=== PATIENT | male | born 1945 | race Caucasian/White ===

== ENCOUNTER 2024-11-30 13:42 | Emergency (ER) | payer MEDICARE, OTHER, SELFPAY ==
[2024-11-30] VITALS (9 sets, daily range): BP systolic 171–186; BP diastolic 74–96; PULSE 65–84; RESP 18; TEMP 36.6; O2SAT 95–97; BMI 39.7
--- NOTE | 2024-11-30 14:15 | DI.RAD.S_ITS ---
PROCEDURE: XR CHEST 1V INDICATIONS: Shortness of breath TECHNIQUE: One view of the chest was acquired. COMPARISON: [facility], , CHEST 2 VIEW, 01/11/2016, 10:52. FINDINGS: Surgical changes and devices: None. Lungs and pleura: Mild pulmonary vascular congestion. Increased interstitial lung markings are noted in bilateral lung valle concerning for mild pulmonary edema versus pneumonitis. No definite focal infiltrate. No pleural effusions or pneumothorax. Mediastinum: Mediastinal contours appear normal. Heart size is enlarged. Bones and chest wall: No suspicious bony lesions. Overlying soft tissues appear unremarkable. IMPRESSION: Cardiomegaly and mild congestion. Increased interstitial lung markings concerning for pulmonary edema versus pneumonitis. No definite focal infiltrate. No pleural effusion or pneumothorax. Dictated by: Rl Mayorga M.D. on 11/30/2024 at 15:24 Approved by: Rl Mayorga M.D. on 11/30/2024 at 15:25
--- NOTE | 2024-11-30 14:25 | EKG_ITS ---
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
[2024-11-30 15:05] LABS: Add Manual Diff / Slide Review NO; Hematocrit 44.9 % (41-53); Hemoglobin 15.4 g/dL (13.5-17.5); Lymphocytes Absolute Auto 800 /uL (1100-4500); Mean Corpuscular HGB Conc 34.2 % (30-36); Mean Corpuscular Hemoglobin 34.6 PG (26-34); Mean Corpuscular Volume 101.0 fL (80-100); Platelet Count 167 X10^3/uL (150-400)
[2024-11-30 15:11] LABS: INR 1.0 (0.9-1.3); Prothrombin Time 11.5 SECONDS (9.4-12.5)
[2024-11-30 15:18] LABS: Alanine Aminotransferase 55 IU/L (<50); Albumin 3.6 g/dL (3.5-5.0); Albumin Globulin Ratio 1.5 (1.0-2.8); Alkaline Phosphatase 125 U/L (38-126); Blood Urea Nitrogen 39 mg/dL (9-20); Calcium 8.6 mg/dL (8.4-10.2); Carbon Dioxide 33 mmol/L (22-32); Chloride 97 mmol/L (98-107); Estimated Glomerular Filt Rate > 60 mL/min (>60); Globulin 2.4 g/dL (1.7-4.1); Glucose 216 mg/dL (70-99); HEMOLYSIS 20 (0-50); Potassium 3.2 mmol/L (3.4-5.1); Sodium 137 mmol/L (137-145); Total Protein 6.0 g/dL (6.3-8.2)
[2024-11-30 15:19] LABS: Lactate (Lactic Acid) 1.8 mmol/L (0.7-2.1)
[2024-11-30 15:30] LABS: NT-proBNP (BNP-Adult 18+) 193 pg/mL (<450); Troponin I < 0.012 ng/mL (0.01-0.034)
[2024-11-30] MEDS: POTASSIUM CHLORIDE 20 MEQ TAB PO (16:18)
--- NOTE | 2024-11-30 18:10 | ED.EXTPRO ---
HPI - Extremity Problem General Chief complaint: Extremity Problem,Nontraumatic Stated complaint: bilateral lower leg pain, swelling Time Seen by Provider: 11/30/24 15:25 Source: patient Mode of arrival: Ambulatory Limitations: no limitations History of Present Illness HPI Narrative: 79-year-old male patient with a history of hypertension, venous insufficiency and lymphedema, morbid obesity/obstructive sleep apnea, BPH, chronic back pain with L-spine stenosis and person/anxiety, who presents with worsening of his chronic lower leg edema with some weeping and slight erythema of the lower legs. No warmth or tenderness. For the last week he has been taking some of his 's torsemide pills. Denies shortness of breath or chest pain. He was recently started on a burst and taper prednisone for his back problems. MD Complaint: extremity swelling Onset (ago): week(s) (One week) Related Data Home Medications ?Medication ?Instructions ?Recorded ?Confirmed MULTIVITAMIN (One Daily 1 tab PO QDAY ##0 06/19/11 Multivitamin) [VITAMIN D3] PO QDAY ##0 10/02/12 [ReLeaf cream/spray] ##0 01/02/16 Previous Rx's ?Medication ?Instructions ?Recorded sildenafil 100 mg tablet (Viagra) 100 mg PO PRN #18 tabs 03/29/16 prednisone 20 mg tablet 40 mg (2 x 20 mg) PO AMCC #10 tabs 04/11/16 lisinopril 40 mg tablet 40 mg PO QDAY #90 tabs 12/25/16 hydrochlorothiazide 25 mg tablet 25 mg PO QDAY #30 tabs 03/24/17 Allergies Allergy/AdvReac Type Severity Reaction Status Date / Time Sulfa (Sulfonamide Allergy Intermediate BIG Verified 11/30/24 14:15 Antibiotics) (SULFA BLOTCHY (SULFONAMIDE ANTIBIOTICS)) HIVES clindamycin (CLINDAMYCIN) Allergy Mild RASH AND Verified 11/30/24 14:15 HIVES Penicillins (PENICILLINS) Allergy Unknown UNKNOWN Verified 11/30/24 14:15 (PER PT, MOM SAID I WAS ALLERGIC) Review of Systems Review of Systems ROS Unobtainable: All systems reviewed & are unremarkable except as noted in HPI and below Patient History Family History (Updated 01/26/15 @ 00:00 by ANTHONY Elliott) Brother Age: 63 Arthritis Father Age: 97 Head pain Hypertension Cataract Sister Age: 64 Chronic pain Sister Age: 69 Hypertension Exam Initial Vital Signs Initial Vital Signs: Vital Signs Temperature 97.9 F 11/30/24 14:06 Pulse Rate 77 11/30/24 14:06 Respiratory Rate 18 11/30/24 14:06 Blood Pressure 172/96 H 11/30/24 14:06 Pulse Oximetry 97 11/30/24 14:06 Oxygen Delivery Method Room Air 11/30/24 14:06 Const General: cooperative, comfortable and No acute distress Nutritional Appearance: obese Limitations: mental status not altered [facility] Head: normocephalic and atraumatic Neck Neck: normal visual inspection Chest Chest: normal inspection of the chest Resp Effort & Inspection: normal respiratory effort and able to speak in complete sentences Auscultation: clear to auscultation bilaterally Cardio Rate: regular rate Rhythm: regular rhythm GI Palpation: soft, No guarding and No tender Neuro General: patient alert, patient awake and patient oriented x3 Extrem Other: Exam of the lower extremities reveals significant lymphedema and venous stasis with venous stasis dermatitis and weeping but no warmth or tenderness. There is slight erythema consistent with stasis dermatitis. No calf tenderness. Sensation intact. No ulcers Course Orders Ordered: ED Orders 11/30/24 14:15 XR chest 1V Stat EKG-12 Lead Stat 11/30/24 14:47 Blood Culture Stat Complete Blood Count AUTO DIFF Stat Comprehensive Metabolic Panel Stat Lactate (Lactic Acid) Stat NT-proBNP (BNP-Adult 18+) Stat Prothrombin Time INR Stat Troponin I Stat Discontinued Medications Potassium Chloride (Potassium Chloride 20 Meq Tab) 20 meq PO NOW ONE Stop: 11/30/24 15:26 Last Admin: 11/30/24 16:18 Dose: 20 meq Documented By: ES Vital Signs Vital signs: Vital Signs - 8 hr 11/30/24 14:06 Temperature 97.9 F Pulse Rate 77 Respiratory Rate 18 Blood Pressure 172/96 H Pulse Oximetry 97 Oxygen Delivery Method Room Air MDM - Extremity (Nontraumatic) Lab Data 11/30/24 14:47 11/30/24 14:47 Labs: Lab Results 11/30/24 Range/Units 14:47 WBC 6.9 (4.5-11.0) X10^3/uL RBC 4.45 L (4.5-5.9) X10^6/uL Hgb 15.4 (13.5-17.5) g/dL Hct 44.9 (41-53) % MCV 101.0 H (80-100) fL MCH 34.6 H (26-34) PG MCHC 34.2 (30-36) % RDW 13.4 (11.6-14.8) % Plt Count 167 (150-400) X10^3/uL Neut % (Auto) 83.6 H (50-75) % Lymph % (Auto) 11.2 L (25-40) % Warren % (Auto) 4.9 (3-14) % Eos % (Auto) 0.0 L (2-4) % Baso % (Auto) 0.3 (0-2) % Neut # (Auto) 5800 (8635-1781) /uL Lymph # (Auto) 800 L (7868-2002) /uL Warren # (Auto) 300 (0-900) /uL Eos # (Auto) 0 (0-450) /uL Baso # (Auto) 0 (0-100) /uL PT 11.5 (9.4-12.5) SECONDS INR 1.0 (0.9-1.3) Sodium 137 (137-145) mmol/L Potassium 3.2 L (3.4-5.1) mmol/L Chloride 97 L (98-107) mmol/L Carbon Dioxide 33 H (22-32) mmol/L BUN 39 H (9-20) mg/dL Creatinine 1.09 (0.66-1.25) mg/dL Estimated GFR > 60 (>60) mL/min BUN/Creatinine Ratio 35.8 H (6-22) Glucose 216 H (70-99) mg/dL Lactate 1.8 (0.7-2.1) mmol/L Calcium 8.6 (8.4-10.2) mg/dL Total Bilirubin 0.5 (0.2-1.3) mg/dL AST 57 (17-59) IU/L ALT 55 H (<50) IU/L Alkaline Phosphatase 125 (38-126) U/L Troponin I < 0.012 (0.01-0.034) ng/mL NT-Pro-B Natriuret Pep 193 (<450) pg/mL Total Protein 6.0 L (6.3-8.2) g/dL Albumin 3.6 (3.5-5.0) g/dL Globulin 2.4 (1.7-4.1) g/dL Albumin/Globulin Ratio 1.5 (1.0-2.8) Discharge Plan Departure Prescriptions: No Action MULTIVITAMIN (One Daily Multivitamin) 1 tab PO QDAY Qty: 0 [VITAMIN D3] PO QDAY Qty: 0 [ReLeaf cream/spray] Qty: 0 sildenafil [Viagra] 100 MG tablet 100 mg PO PRN Qty: 18 2RF prednisone 20 MG tablet 40 mg PO AMCC Qty: 10 0RF lisinopril 40 MG tablet 40 mg PO QDAY Qty: 90 1RF hydrochlorothiazide 25 MG tablet 25 mg PO QDAY Qty: 30 0RF Referrals: Doe Hastings MD [Primary Care Provider, Family Practice]
--- NOTE | 2024-11-30 18:49 | ED_ITS ---
HPI - Extremity Problem General Chief complaint: Extremity Problem,Nontraumatic Stated complaint: bilateral lower leg pain, swelling Time Seen by Provider: 11/30/24 15:25 Source: patient Mode of arrival: Ambulatory Limitations: no limitations History of Present Illness HPI Narrative: 79-year-old male patient with a history of hypertension, obesity, sleep apnea, CHF and chronic back pain who presents with worsening of his chronic lower extremity edema/lymph edema and venous stasis. He has had some weeping and the and red discoloration but no tenderness or warmth. He and his were concerned about possible skin infection. Minimal shortness of breath with exertion. Related Data Home Medications ?Medication ?Instructions ?Recorded ?Confirmed MULTIVITAMIN (One Daily 1 tab PO QDAY ##0 06/19/11 Multivitamin) [VITAMIN D3] PO QDAY ##0 10/02/12 [ReLeaf cream/spray] ##0 01/02/16 Previous Rx's ?Medication ?Instructions ?Recorded sildenafil 100 mg tablet (Viagra) 100 mg PO PRN #18 ta bs 03/29/16 prednisone 20 mg tablet 40 mg (2 x 20 mg) PO AMCC #1 0 tabs 04/11/16 lisinopril 40 mg tablet 40 mg PO QDAY #90 tabs 12/25 hydrochlorothiazide 25 mg tablet 25 mg PO QDAY #30 tab s 03/24/17 furosemide 20 mg tablet 20 mg PO DAILY Venous stasis edema 11/30/24 7 days #7 tabs potassium chloride 20 mEq 20 meq PO DAILY 7 days #7 ta bs 11/30/24 tablet,extended release Allergies Allergy/AdvReac Type Severity Reaction Status Date / Time Sulfa (Sulfonamide Allergy Intermediate BIG Verified 11/30/24 14:15 Antibiotics) (SULFA BLOTCHY (SULFONAMIDE ANTIBIOTICS)) HIVES clindamycin (CLINDAMYCIN) Allergy Mild RASH AND Verified 11/30/24 14:15 HIVES Penicillins (PENICILLINS) Allergy Unknown UNKNOWN Verified 11/30/24 14:15 (PER PT, MOM SAID I WAS ALLERGIC) Review of Systems Review of Systems ROS Unobtainable: All systems reviewed & are unremarkable except as noted in HPI and below Constitutional Constitutional: Denies difficulty sleeping Patient History Family History (Updated 01/26/15 @ 00:00 by Denise Love-Johanna, TRAVEL ADMINISTRATOR) Brother Age: 63 Arthritis Father Age: 97 Head pain Hypertension Cataract Sister Age: 64 Chronic pain Sister Age: 69 Hypertension Exam Initial Vital Signs Initial Vital Signs: Vital Signs Temperature 97.9 F 11/30/24 14:06 Pulse Rate 77 11/30/24 14:06 Respiratory Rate 18 11/30/24 14:06 Blood Pressure 172/96 H 11/30/24 14:06 Pulse Oximetry 97 11/30/24 14:06 Oxygen Delivery Method Room Air 11/30/24 14:06 Const General: cooperative, healthy appearing and comfortable Nutritional Appearance: obese HENMT Head: normal to inspection Neck Neck: normal visual inspection and full ROM Chest Chest: normal inspection of the chest Resp Effort & Inspection: normal respiratory effort and able to speak in complete sentences Auscultation: clear to auscultation bilaterally Cardio Rate: regular rate Rhythm: regular rhythm GI Inspection: normal to inspection Palpation: No tender Auscultation: normal bowel sounds Extrem General: no calf tenderness Other: Patient has advanced lymphedema and venous stasis dermatitis lower legs with small amount of weeping. There are some areas of erythema but no warmth or tenderness. Does not appear to be infected. Course Orders Ordered: Discontinued Medications Potassium Chloride (Potassium Chloride 20 Meq Tab) 20 meq PO NOW ONE Stop: 11/30/24 15:26 Last Admin: 11/30/24 16:18 Dose: 20 meq Documented By: ANETA Vital Signs Vital signs: Vital Signs - 8 hr 11/30/24 17:00 11/30/24 17:01 11/30/24 17:01 Pulse Rate 84 78 Blood Pressure 186/84 H Pulse Oximetry 96 96 11/30/24 17:30 11/30/24 17:31 11/30/24 17:31 Pulse Rate 65 70 Blood Pressure 177/74 H Pulse Oximetry 95 95 11/30/24 17:48 11/30/24 17:48 11/30/24 18:00 Pulse Rate 78 72 Blood Pressure 171/81 H Pulse Oximetry 95 95 11/30/24 18:00 Pulse Rate Blood Pressure 172/85 H Pulse Oximetry MDM - Extremity (Nontraumatic) Lab Data 11/30/24 14:47 11/30/24 14:47 Labs: Lab Results 11/30/24 Range/Units 14:47 WBC 6.9 (4.5-11.0) X10^3/uL RBC 4.45 L (4.5-5.9) X10^6/uL Hgb 15.4 (13.5-17.5) g/dL Hct 44.9 (41-53) % MCV 101.0 H (80-100) fL MCH 34.6 H (26-34) PG MCHC 34.2 (30-36) % RDW 13.4 (11.6-14.8) % Plt Count 167 (150-400) X10^3/uL Neut % (Auto) 83.6 H (50-75) % Lymph % (Auto) 11.2 L (25-40) % Yell % (Auto) 4.9 (3-14) % Eos % (Auto) 0.0 L (2-4) % Baso % (Auto) 0.3 (0-2) % Neut # (Auto) 5800 (1423-6688) /uL Lymph # (Auto) 800 L (4481-4815) /uL Yell # (Auto) 300 (0-900) /uL Eos # (Auto) 0 (0-450) /uL Baso # (Auto) 0 (0-100) /uL PT 11.5 (9.4-12.5) SECONDS INR 1.0 (0.9-1.3) Sodium 137 (137-145) mmol/L Potassium 3.2 L (3.4-5.1) mmol/L Chloride 97 L (98-107) mmol/L Carbon Dioxide 33 H (22-32) mmol/L BUN 39 H (9-20) mg/dL Creatinine 1.09 (0.66-1.25) mg/dL Estimated GFR > 60 (>60) mL/min BUN/Creatinine Ratio 35.8 H (6-22) Glucose 216 H (70-99) mg/dL Lactate 1.8 (0.7-2.1) mmol/L Calcium 8.6 (8.4-10.2) mg/dL Total Bilirubin 0.5 (0.2-1.3) mg/dL AST 57 (17-59) IU/L ALT 55 H (<50) IU/L Alkaline Phosphatase 125 (38-126) U/L Troponin I < 0.012 (0.01-0.034) ng/mL NT-Pro-B Natriuret Pep 193 (<450) pg/mL Total Protein 6.0 L (6.3-8.2) g/dL Albumin 3.6 (3.5-5.0) g/dL Globulin 2.4 (1.7-4.1) g/dL Albumin/Globulin Ratio 1.5 (1.0-2.8) Imaging Data Chest x-ray: Radiologist's Impression: IMPRESSION: Cardiomegaly and mild congestion. Increased interstitial lung markings concerning for pulmonary edema versus pneumonitis. No definite focal infiltrate. No pleural effusion or pneumothorax. MDM Narrative Medical decision making narrative: Patient presents concerned about his swollen legs with weeping and slight erythema but no pain or tenderness. No fever or chills. Because of the redness they were concerned about cellulitis. However on exam this does not correlate with cellulitis. It correlates better with venous stasis dermatitis with nontender non warm slight erythema and weeping. He has chronic venous insufficiency and lymphedema this has become worse over the last week. His workup also included a chest x-ray showing mild congestive heart failure and lab work showing mild hypokalemia. He already received a dose of potassium here in the ER. Plan is for him to start furosemide and potassium over the next week and follow up closely with his doctor. Also elevate legs as much as possible and avoid excess salt. He was given handouts on all of these problems. Return to the ER if worse Discharge Plan Departure Patient Disposition: Home Clinical Impression: Chronic venous stasis dermatitis, Chronic venous insufficiency, Congestive heart failure, Acute hypokalemia Instructions: Heart Failure, Chronic Venous Insufficiency, Hypokalemia, Stasis Dermatitis Activity Restrictions/Additional Instructions: Plan: One-week supply of furosemide with potassium to treat mild congestive heart failure, severe venous stasis edema and mild hypokalemia. Elevate legs as much as possible. Avoid excess salt. Follow closely with your provider to address all of these problems and to discuss venous stasis edema and mild congestive heart failure. Return to the ER if worse. Prescriptions: New furosemide 20 mg tablet 20 mg PO DAILY 7 Days Qty: 7 0RF potassium chloride 20 mEq tablet extended release 20 meq PO DAILY 7 Days Qty: 7 0RF No Action MULTIVITAMIN (One Daily Multivitamin) 1 tab PO QDAY Qty: 0 [VITAMIN D3] PO QDAY Qty: 0 [ReLeaf cream/spray] Qty: 0 sildenafil [Viagra] 100 MG tablet 100 mg PO PRN Qty: 18 2RF prednisone 20 MG tablet 40 mg PO AMCC Qty: 10 0RF lisinopril 40 MG tablet 40 mg PO QDAY Qty: 90 1RF hydrochlorothiazide 25 MG tablet 25 mg PO QDAY Qty: 30 0RF Referrals: Doe Hastings MD [Primary Care Provider, Family Practice] Stand Alone Forms: Patient Portal/API
--- NOTE | 2024-12-01 16:45 | PC.NURSE ---
Spoke with Pete. Prescriptions were not transmitted to [facility]. I called the pharmicist . prescriptions will be ready in 2 hours. I called patient back to let him know.
== END 2024-11-30 19:05 | disposition home or self-care (01) ==
PROVIDERS: Emergency Medicine; Emergency Provider Emergency Medicine; Family Provider Family Medicine; PCP Family Medicine
DX: I87.2 Venous insufficiency (chronic) (peripheral) (principal); I50.9 Heart failure, unspecified; E87.6 Hypokalemia
CPT/HCPCS: 36415; 71045; 80053; 83605; 83880; 84484; 85025; 85610; 87040; 93005; 99284